=== PATIENT | male | born 1960 | race Caucasian/White ===

== ENCOUNTER 2018-01-13 19:14 | Emergency (ER) | payer SELFPAY ==
[2018-01-13] MEDS ORDERED: Bacitracin 500 Units/gm Oint Foilpak UD TOP ONE (20:39)
[2018-01-13] MEDS ORDERED: Lidocaine 2% Inj (20ml) INFIL ONE (20:40)
--- NOTE | 2018-01-13 20:51 | C.PDOC ---
History Of Present Illness 57-year-old male, up to date w/ tetanus vaccine, comes in with complaint of lip injury, Patient states he sustained laceration to upper lip when trying to remove a box from a shelf, and it fell onto his face. He denies any loss of consciousness, vomiting, visual changes, dizziness, neck pain. Time Seen by Provider: 01/13/18 20:02 Chief Complaint (Nursing): Abnormal Skin Integrity History Per: Patient History/Exam Limitations: no limitations Past Medical History Reviewed: Historical Data, Nursing Documentation, Vital Signs Vital Signs: Last Vital Signs Temp 98.3 F 01/13/18 21:16 Pulse 86 01/13/18 21:16 Resp 16 01/13/18 21:16 BP 144/91 H 01/13/18 21:16 Pulse Ox 96 01/13/18 21:16 Family History: States: No Known Family Hx - Social History Hx Alcohol Use: Yes Hx Substance Use: Yes (heroin) - Immunization History Hx Tetanus Toxoid Vaccination: Yes Hx Influenza Vaccination: No Hx Pneumococcal Vaccination: No Review Of Systems Except As Marked, All Systems Reviewed And Found Negative. Skin: Positive for: Other (Lip laceration) Physical Exam - Physical Exam Appears: Non-toxic, No Acute Distress Skin: Normal Color, Warm, Dry, No Rash Head: Normacephalic, Other (No jaw tenderness) Eye(s): bilateral: PERRL, EOMI Nose: Normal Oral Mucosa: Moist Lips: Other (1.5 linear laceration to philtral dimple, not through and through, does not cross vermilion border.) Throat: No Erythema, No Exudate Neck: Normal ROM, Supple ED Course And Treatment O2 Sat by Pulse Oximetry: 97 (RA) Pulse Ox Interpretation: Normal Laceration - Laceration Repair Upper lip Wound Length (In cm): 1.5cm Description Of Wound: Linear Wound Cleansed With: Betadine, Sterile Saline Anesthesia: Lidocaine 1% Wound Examination: Irrigated With Saline Wound Closure: Suture (three) Suture Technique And Material Used: Prolene (6-O) Wound Complexity: Simple Disposition - Disposition Referrals: [facility] [Outside] Disposition: HOME/ ROUTINE Disposition Time: 20:50 Condition: GOOD Additional Instructions: Clean twice a day with soap and water and apply bacitracin. Sutures to be removed within 5-7 days. Return if worsened. Prescriptions: Bacitracin Ointment [Bacitracin] 30 gm TOP BID #1 tube Instructions: Laceration Repair Forms: [facility] (Mongolian) - Clinical Impression Clinical Impression: Lip laceration - Scribe Statement The provider has reviewed the documentation as recorded by the Scribe (Mahi Mccarthy) All medical record entries made by the Scribe were at my direction and personally dictated by me. I have reviewed the chart and agree that the record accurately reflects my personal performance of the history, physical exam, medical decision making, and the department course for this patient. I have also personally directed, reviewed, and agree with the discharge instructions and disposition.
[2018-01-13] MEDS ORDERED: Lidocaine 2% Inj (20ml) ONE (20:53)
[2018-01-13] MEDS ORDERED: Bacitracin 500 Units/gm Oint Foilpak UD ONE (20:53)
[2018-01-13 21:17] VITALS: BP 144/91; PULSE 86; RESP 16; TEMP 98.3
[2018-01-13 21:57] VITALS: O2SAT 97
== END 2018-01-13 21:36 | disposition home or self-care (01) ==
LOC: C.ER 19:14
DX: S01.511A Laceration without foreign body of lip, initial encounter (principal); W22.8XXA Striking against or struck by other objects, initial encounter; Y92.89 Other specified places as the place of occurrence of the external cause